=== PATIENT | female | born 1950 | race Caucasian/White ===

== ENCOUNTER 2024-11-03 15:29 | Inpatient (IN) | payer OTHER, SELFPAY ==
[2024-11-03] VITALS (7 sets, daily range): BP systolic 138–171; BP diastolic 67–89
[2024-11-03 08:50] LABS: % Basophils 0.2 % (0-2); % Eosinophils 1.9 % (0-6); % Immature Granulocytes 0.4 % (0-0.5); % Monocytes 0.4 % (1.7-9.3); % Neutrophils 92.1 % (42.2-75.2); Absolute Eosinophils 0.1 10^3/uL (0-0.7); Absolute Lymphocytes 0.3 10^3/uL (1.2-3.4); Absolute Neutrophils 4.8 10^3/uL (1.4-6.5); Hematocrit 33.8 % (37.0-47.0); Mean Corp Hgb Conc. 35.5 g/dL (33.0-37.0); Mean Corpuscular Hgb 32.4 pg (27.0-31.0); Mean Corpuscular Volume 91.4 fL (81.0-99.0); Mean Platelet Volume 9.7 fL (7.4-10.4); Nucleated Red Blood Cells % 0 %; Platelet Count 122 10^3/uL (130-400); Red Cell Dist. Width 13.4 % (11.5-14.5); White Blood Cell Count 5.2 10^3/uL (4.8-10.8)
[2024-11-03 08:59] LABS: ALT (SGPT) 33 U/L (0-35); AST (SGOT) 27 U/L (14-36); Albumin 3.8 g/dl (3.5-5.0); Alkaline Phosphatase 58 U/L (38-126); Blood Urea Nitrogen 13 mg/dl (7-17); Calcium 8.1 mg/dl (8.4-10.2); Carbon Dioxide 26 mmol/L (22-30); Chloride 91 mmol/L (98-107); Glucose 133 mg/dl (70-99); Potassium 3.6 mmol/L (3.5-5.1); Sodium 124 mmol/L (135-145); Total Bilirubin 1.3 mg/dl (0.2-1.3); Total Protein 5.9 g/dl (6.3-8.2); eGFR > 60.00
[2024-11-03] MEDS: NSS 1000 IV ×2 (09:50→18:26)
--- NOTE | 2024-11-03 10:14 | ED.GENMED ---
History of Present Illness
General
Chief Complaint: Abdominal Symptoms
Source: patient
Exam Limitations: none
Time Seen by Provider: 11/03/24 09:05
Nursing documentation reviewed up to this point in time: agreed with
History of Present Illness
History of Present Illness:
74-year-old female with past medical history of metastatic lung cancer (mets to the brain, bone, liver) who presents to the emergency department for evaluation of nausea and vomiting. Patient recently started chemotherapy for metastatic lung
cancer�had treatment Tuesday and Tuesday of this week. She follows with oncology through [facility]. She says that on she started to develop nausea and has had severe nausea and vomiting since. She has also had some loose stools. She
has had some very mild abdominal discomfort. She denies any fever or chills. She denies any chest pain, shortness of breath or any other complaints. She was prescribed both Zofran and Compazine for her nausea but despite taking these medications
symptoms have been severe and she has not been able to keep any food or liquid down which prompted her to come to the ER.
Past History
Past History
ED Past Medical History: Other (Mitral valve prolapse, syncope)
ED Past Surgical History: Orthopedic
Social History
Tobacco: Non-smoker
Personal:
Review of Systems
Review of Systems
All Other Systems: ROS reviewed and negative except as documented in HPI and ROS
Constitutional: Reports fatigue; Denies fever
Respiratory: Denies trouble breathing
Cardiac: Denies chest pain
ABD/GI: Reports abdominal pain, nausea, vomiting and diarrhea
: Denies flank pain
Musculoskeletal: Denies neck pain or back pain
Neurological: Denies dizzy or headache
Phy Exam
Physical Exam
Physical Exam:
General: Awake, alert, holding emesis bag
Head: Normocephalic, atraumatic
Eyes: Conjunctiva normal, sclera anicteric
Throat: Airway intact, slightly dry mucous membrane
Neck: Trachea midline, supple without meningismus
Lungs: Clear to auscultation bilaterally, no wheezing, rales, rhonchi
Heart: Regular rate and rhythm, no murmurs, gallops, or rubs
Abd: Soft, non distended, mild diffuse tenderness with no peritoneal signs
Neuro: Cranial nerves intact, motor and sensory intact in all extremities
Skin: no rash
Extremities: Warm and well-perfused
Scores
Heart Failure Risk
Heart Failure Risk Score: Not Applicable
Heart Score for Chest Pain Patients
STEMI patient?: Not applicable
Withdrawal Assessment of Alcohol
Withdrawal Assessment Completed?: Not applicable
Course
Orders/Labs/Results
Orders:
Orders
11/03/24 08:34
Complete Blood Count/With Diff Urgent
Comprehensive Metabolic Panel Urgent
Lipase Urgent
Comment: ADD ON
11/03/24 09:46
Add On- LAB Urgent
Tests Added?: lipase
CT Abd/pelvis W Iv Cont Urgent
Comment:
Reason For Exam: abd tenderness, N/V; h/o metastatic lung ca
11/03/24 09:47
0.9% Sodium Chloride 1000 ml [Nss] 1,000 ml IV BOLUS
Ondansetron Injectable [Zofran] 4 mg IV NOW STA
11/03/24 10:16
CT Head W/o Iv Contrast Urgent
Comment:
Reason For Exam: intractable nausea and vomiting, h/o brain met
11/03/24 10:17
Electrocardiogram (*1) Urgent
Reason for Study: QTc Monitoring
EKG- Treatment ONCE
11/03/24 10:55
Troponin I Urgent
11/03/24 11:57
Promethazine [Phenergan] 25 mg RECTAL NOW STA
Abnormal Lab Results
11/03/24
08:34
RBC 3.70 L 10^6/uL
(4.20-5.40)
Hct 33.8 L %
(37.0-47.0)
MCH 32.4 H pg
(27.0-31.0)
Plt Count 122 L 10^3/uL
(130-400)
Absolute Lymphs (auto) 0.3 L 10^3/uL
(1.2-3.4)
Absolute Monos (auto) 0.0 L 10^3/uL
(0.1-0.6)
Neutrophils % 92.1 H %
(42.2-75.2)
Lymphocytes % 5.0 L %
(20.5-51.1)
Monocytes % 0.4 L %
(1.7-9.3)
Sodium 124 L mmol/L
(135-145)
Chloride 91 L mmol/L
(98-107)
Creatinine 0.4 L mg/dL
(0.6-1.0)
Glucose 133 H mg/dl
(70-99)
Calcium 8.1 L mg/dl
(8.4-10.2)
Total Protein 5.9 L g/dl
(6.3-8.2)
11/03/24 08:34
11/03/24 08:34
Vital Signs
Initial and Last Documented VS:
Initial Vital Signs
Temp Pulse Resp BP Pulse Ox
36.7 C 88 20 138/73 100
11/03/24 07:54 11/03/24 07:54 11/03/24 07:54 11/03/24 07:54 11/03/24 07:54
Last Documented Vital Signs
Temp Pulse Resp BP Pulse Ox
36.7 C 88 16 138/73 100
11/03/24 07:54 11/03/24 07:54 11/03/24 08:00 11/03/24 07:54 11/03/24 07:54
MDM/Problems Addressed
Differential Diagnosis Includes:
Cholelithiasis, cholecystitis, bowel obstruction, pancreatitis, gastritis, enteritis, cancer/chemotherapy related symptoms, bowel obstruction, brain bleed/edema related to brain metastasis
MDM/Problems Addressed:
74-year-old female with history of metastatic lung cancer recently initiated chemotherapy presents for evaluation of severe nausea and vomiting associated with some mild abdominal discomfort as well as occasional loose stools. She has been
prescribed both Zofran and Compazine but these have not helped with her nausea and she says she is not able to keep any food or liquid down over the past few days. Vital signs and exam as above. Will plan to place large-bore IV send labs including
a CBC and a CMP, lipase. Check EKG and troponin. Check CT abdomen pelvis. Also check CT head to rule out brain bleed/edema related to metastasis. Will treat symptomatically and provide fluids. Reassess after the above.
Labs reviewed: CBC unremarkable, CMP does show hyponatremia likely hypovolemic. CT head negative for any acute pathology. CT abdomen pelvis shows colitis and duodenitis which accounts for her symptoms, suspect that this is related to chemotherapy.
Patient still feeling very weak and nauseated. Very weak and nauseated. Will admit for supportive care given continued nausea and vomiting with failure of multiple outpatient oral antiemetics and parenteral antiemetic here.
Chronic conditions affecting care:
Metastatic lung cancer
*Radiology
Radiology exam reviewed: radiology read reviewed
*Pulse Oximetry
Patient hypoxic: no
*Critical Care Note
Total Time (30-74mins, 75-104mins- exclusive of procedures): Not Applicable
Data Reviewed
Source: patient, records and spouse
Patient Management
Discussion with other providers: Hospitalist (Discussed with hospitalist)
Escalation/DeEscalation of care consider admission/obs:
Admission indicated
ED Attending Note
-
Portions of this chart may have been created with voice recognition software.� Occasional wrong word or��sound alike� substitutions may have occurred due to the inherent limitations of voice recognition software.
Discharge Plan
Departure
Patient Disposition: Admit
Date of Disposition: 11/03/24
Time of Disposition: 14:03
Admit to doctor: Micaela
Presentation/result/management discussed w/ accepting MD/DO: Hospitalist
Discharge Problem:
Colitis, Nausea & vomiting
Prescriptions:
No Action
ondansetron [Zofran ODT] 8 MG tablet,disintegrating
8 mg PO TID PRN (Reason: nausea/vomiting) Qty: 15 0RF
meclizine 25 MG tablet
25 mg PO Q8HPRN PRN (Reason: nausea or vertigo) Qty: 0 0RF
Referrals:
Ovidio Osorio DO [Family Provider] -
Interventions
Interventions:
*Risk Screen - Suicide Last Done: 11/03/24 07:58
*General Assessment Last Done: 11/03/24 08:23
*Neglect/Abuse Screening Last Done: 11/03/24 07:58
*ED- Fall Risk Assessment Last Done: 11/03/24 08:23
*ED COVID-19 Vaccine History Last Done: 11/03/24 08:23
OM-Jduktw-Midzhcppir Assessment Last Done: 11/03/24 08:24
Discharge Date and Time
Print Language: TELUGU
[2024-11-03 10:18] LABS: Lipase 110 U/L (23-300)
[2024-11-03] MEDS: ZOFRAN 4 MG IV ×2 (10:30→20:32)
[2024-11-03 11:42] LABS: Troponin I < 0.012 ng/ml
[2024-11-03] MEDS: PHENERGAN RECTAL (12:20)
[2024-11-03] MEDS: PHENERGAN 25 MG RECTAL (14:08)
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
[2024-11-03 18:25] LABS: Sodium 127 mmol/L (135-145)
[2024-11-03] MEDS: HEPARIN 5000 UNITS SC (19:41)
[2024-11-03] MEDS: PHENERGAN 12.5 MG PO (22:14)
[2024-11-04] MEDS: ZOFRAN 4 MG IV (02:22)
[2024-11-04] MEDS: NSS 1000 IV ×2 (03:39→15:33)
[2024-11-04 04:23] LABS: % Immature Granulocytes 3.7 % (0-0.5); % Lymphocytes 12.7 % (20.5-51.1); % Neutrophils 79.6 % (42.2-75.2); Absolute Eosinophils 0.1 10^3/uL (0-0.7); Absolute Immature Granulocytes 0.1 10^3/uL (0-0.05); Absolute Lymphocytes 0.3 10^3/uL (1.2-3.4); Absolute Monocytes 0.1 10^3/uL (0.1-0.6); Absolute Neutrophils 1.9 10^3/uL (1.4-6.5); Hematocrit 34.4 % (37.0-47.0); Hemoglobin 12.1 g/dL (12.0-16.0); Mean Corp Hgb Conc. 35.2 g/dL (33.0-37.0); Mean Corpuscular Hgb 32.9 pg (27.0-31.0); Mean Corpuscular Volume 93.5 fL (81.0-99.0); Mean Platelet Volume 9.6 fL (7.4-10.4); Nucleated Red Blood Cells % 0 %; Platelet Count 104 10^3/uL (130-400); Red Blood Cell Count 3.68 10^6/uL (4.20-5.40); Red Cell Dist. Width 13.6 % (11.5-14.5); White Blood Cell Count 2.4 10^3/uL (4.8-10.8)
[2024-11-04 04:31] LABS: ALT (SGPT) 29 U/L (0-35); AST (SGOT) 25 U/L (14-36); Albumin 3.9 g/dl (3.5-5.0); Alkaline Phosphatase 59 U/L (38-126); Blood Urea Nitrogen 10 mg/dl (7-17); Calcium 7.6 mg/dl (8.4-10.2); Carbon Dioxide 26 mmol/L (22-30); Chloride 92 mmol/L (98-107); Glucose 131 mg/dl (70-99); Potassium 3.4 mmol/L (3.5-5.1); Sodium 125 mmol/L (135-145); Total Bilirubin 1.2 mg/dl (0.2-1.3); eGFR > 60.00
[2024-11-04] MEDS: KCL 270 MEQ IV (05:46)
[2024-11-04 07:00] VITALS: BP 155/91
[2024-11-04 07:28] VITALS: BP 155/91
[2024-11-04] MEDS: HEPARIN 5000 UNITS SC ×2 (09:37→21:29)
[2024-11-04] MEDS: IMODIUM 2 MG PO ×2 (09:40→21:44)
--- NOTE | 2024-11-04 10:54 | CON.GI ---
Consultation
-
Date/Time Consultation Performed: 11/04/24
Performing Provider: Vernon Dupont MD
Reason for Consultation: N/V/D
Medical History
Chief Complaint / HPI
Chief Complaint: N/V/D
History of Present Illness:
The patient is a 74-year-old female with past medical history as noted who presents with nausea vomiting and diarrhea. She has a several year history of metastatic lung cancer, though with new metastasis was recently started on new regimen
including carboplatin and immunotherapy. Within 2 days she started having profuse vomiting, and diarrhea which was nonbloody. She denies any specific abdominal pain, fever chills, sick contacts. She usually does not have any specific GI symptoms
and usually does pretty well. Since being in the emergency room her symptoms are much improved after IV fluids and antiemetics.
Past Medical History
Past Medical History: Other (Metastatic non-small cell lung cancer to brain, bone and liver, anxiety, mitral valve prolapse, leg fracture)
Past Surgical History: Other (Leg surgery)
Social History
Tobacco: Non-Smoker
Alcohol: Occasional
Family History
Family History: Reviewed & Not Pertinent
Allergies / Home Medications
Allergy/AdvReac Type Severity Reaction Status Date / Time
No Known Allergies Allergy Verified 11/03/24 08:01
�Medication �Instructions �Recorded
alprazolam 0.25 mg tablet 0.25 mg PO HSPRN PRN ANXIETY 11/03/24
dexamethasone 4 mg tablet See Rx Instructions .Route .COMPLEX 11/03/24
folic acid 1 mg tablet 1 mg PO DAILY 11/03/24
loperamide 2 mg capsule 2 mg PO DAILYPRN PRN diarrhea 11/03/24
ondansetron HCl 8 mg tablet 8 mg PO Q8HPRN PRN nausea/vomiting 11/03/24
prochlorperazine maleate 10 mg 10 mg PO Q6HPRN PRN nausea/vomiting 11/03/24
tablet
Review of Systems
-
All other systems: A 12 pt ROS was Negative except as stated above in HPI
Vital Signs
Temp Pulse Resp BP Pulse Ox
98.4 F 76 19 165/78 97
11/03/24 23:54 11/03/24 21:00 11/03/24 20:40 11/03/24 21:00 11/03/24 20:44
Physical Exam
Exam
General: NAD
HEENT: MMM, anicteric, no lymphadenopathy
Heart: Regular, no murmurs
Lungs: CTA bilaterally
Abdomen: normal bowel sounds, soft, no tenderness, no rebound or guarding, no masses, bruits or ascites
Extremeties: no edema
Skin: no rashes
Results
WBC 2.4 10^3/uL (4.8-10.8) L* 11/04/24 04:01
Hgb 12.1 g/dL (12.0-16.0) 11/04/24 04:01
Hct 34.4 % (37.0-47.0) L 11/04/24 04:01
MCV 93.5 fL (81.0-99.0) 11/04/24 04:01
Plt Count 104 10^3/uL (130-400) L 11/04/24 04:01
Absolute Neuts (auto) 1.9 10^3/uL (1.4-6.5) 11/04/24 04:01
Sodium 125 mmol/L (135-145) L 11/04/24 04:01
Sodium Cancelled 11/04/24 04:01
Potassium 3.4 mmol/L (3.5-5.1) L 11/04/24 04:01
Chloride 92 mmol/L (98-107) L 11/04/24 04:01
Carbon Dioxide 26 mmol/L (22-30) 11/04/24 04:01
BUN 10 mg/dl (7-17) 11/04/24 04:01
Creatinine 0.4 mg/dL (0.6-1.0) L 11/04/24 04:01
Calcium 7.6 mg/dl (8.4-10.2) L 11/04/24 04:01
Total Bilirubin 1.2 mg/dl (0.2-1.3) 11/04/24 04:01
AST 25 U/L (14-36) 11/04/24 04:01
ALT 29 U/L (0-35) 11/04/24 04:01
Alkaline Phosphatase 59 U/L (38-126) 11/04/24 04:01
Lipase 110 U/L (23-300) 11/03/24 08:34
Diagnostic Image Results:
CT:
IMPRESSION:
1. Acute uncomplicated colitis at the hepatic flexure, likely of infectious/inflammatory etiology. Adjacent reactive duodenitis. Less likely differential includes primary duodenitis with reactive colitis of the hepatic flexure.
2. Scattered small hypoattenuating hepatic lesions suspicious for metastases.
3. Right lower lobe pulmonary nodule suspicious for neoplasm.
4. Scattered osteoblastic metastases. Probable chronic mild T11 pathologic compression fracture.
Prior GI Procedures:
EGD:
Colonoscopy:
Assessment / Plan
-
1. Nausea/vomiting/diarrhea: Likely secondary to chemotherapy along with dehydration and electrolyte abnormalities given her hyponatremia, hypokalemia etc. She is feeling much better after IV fluid resuscitation and antiemetics with no further
nausea, and diarrhea is improving. C. difficile is negative, other stool studies pending. Immune mediated enterocolitis seems very unlikely given its timing after her first dose of immunotherapy, without any bloody diarrhea and is already much
improved with IV fluids. At this point would continue antiemetics, IV fluids and supportive care with continued replacement of her electrolytes. Continue clear liquids for now though advance as tolerated. Will hold on any further GI workup unless
symptoms change.
We will sign off for now, please call back with any further questions.
-
-
Thank you for consultation and allowing me to participate in the patient's care. Please call the fiction and nonfiction writer prose GI physician during the after hours with any questions or concerns.
--- NOTE | 2024-11-04 10:56 | PTOTSP ---
Received order for PT from the ED and reviewed chart. Went to ED to s/w RN who requests holding PT at this time. Will follow up tomorrow.
--- NOTE | 2024-11-04 11:23 | W.CON.NEPH ---
Consultation
-
Date/Time Consultation Requested: 11/04/2024 9 AM
Date/Time Consultation Performed: 11/05/2019 5:11 AM
Requesting Provider: Dr. Beckham
Performing Provider: Dr. Alexandra
Reason for Consultation: Hyponatremia
Medical History
-
Chief Complaint: Hyponatremia
History of Present Illness:
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 She has been on treatment since 2021. She is currently on her third chemotherapy regimen. This most recent one includes carboplatin, paclitaxel and
Amivantamab-vmjw immunotherapy (over 2 days), she took dexamethasone on 10/29, 10/30, 10/31 and 11/01. On evening she began with nausea and retching. There is not much vomiting as she had not eaten much. Her oral intake has essentially been 0
with the exception of perhaps 8 ounces of fluid per day mostly water. She also began having diarrhea over the weekend voluminous and frequent. She began to have some orthostasis though no falls. Because of these worsening symptoms she came to the
emergency room. She was noted to be hyponatremic with hypokalemia and hypocalcemia. She was not hypotensive however but rather hypertensive. She states that her blood pressure is typically high normal. She does have some mild abdominal
discomfort. She reports no issues with urine output.
Past Medical History
Metastatic adenocarcinoma of the lung
Hypertension
Social History
Tobacco: Non-Smoker
Alcohol: None
Family History
There is an uncle with lung cancer
Family History: Not Pertinent
Allergies / Home Medications
Allergy/AdvReac Type Severity Reaction Status Date / Time
No Known Allergies Allergy Verified 11/03/24 08:01
�Medication �Instructions �Recorded �Confirmed �Type
alprazolam 0.25 mg tablet 0.25 mg PO HSPRN PRN ANXIETY 11/03/24 11/03/24 History
dexamethasone 4 mg tablet See Rx Instructions .Route .COMPLEX 11/03/24 11/03/24 History
folic acid 1 mg tablet 1 mg PO DAILY 11/03/24 11/03/24 History
loperamide 2 mg capsule 2 mg PO DAILYPRN PRN diarrhea 11/03/24 11/03/24 History
ondansetron HCl 8 mg tablet 8 mg PO Q8HPRN PRN nausea/vomiting 11/03/24 11/03/24 History
prochlorperazine maleate 10 mg 10 mg PO Q6HPRN PRN nausea/vomiting 11/03/24 11/03/24 History
tablet
Review of Systems
-
Nausea vomiting diarrhea
All other systems: Negative unless noted
Physical Exam
Vital Signs
Vital Signs
Temp Pulse Resp BP Pulse Ox
98.4 F 76 19 165/78 97
11/03/24 23:54 11/03/24 21:00 11/03/24 20:40 11/03/24 21:00 11/03/24 20:44
Lab Results
WBC 2.4 10^3/uL (4.8-10.8) L* 11/04/24 04:01
RBC 3.68 10^6/uL (4.20-5.40) L 11/04/24 04:01
Hgb 12.1 g/dL (12.0-16.0) 11/04/24 04:01
Hct 34.4 % (37.0-47.0) L 11/04/24 04:01
Plt Count 104 10^3/uL (130-400) L 11/04/24 04:01
Sodium 125 mmol/L (135-145) L 11/04/24 04:01
Sodium Cancelled 11/04/24 04:01
Potassium 3.4 mmol/L (3.5-5.1) L 11/04/24 04:01
Chloride 92 mmol/L (98-107) L 11/04/24 04:01
Carbon Dioxide 26 mmol/L (22-30) 11/04/24 04:01
BUN 10 mg/dl (7-17) 11/04/24 04:01
Creatinine 0.4 mg/dL (0.6-1.0) L 11/04/24 04:01
eGFR > 60.00 11/04/24 04:01
Glucose 131 mg/dl (70-99) H 11/04/24 04:01
Calcium 7.6 mg/dl (8.4-10.2) L 11/04/24 04:01
Albumin 3.9 g/dl (3.5-5.0) 11/04/24 04:01
Laboratory Tests
04/09/17
12:25
Sodium [address] abdomen pelvis 11/03/2024 with IV contrast
IMPRESSION:
1. Acute uncomplicated colitis at the hepatic flexure, likely of infectious/inflammatory etiology. Adjacent reactive duodenitis. Less likely differential includes primary duodenitis with reactive colitis of the hepatic flexure.
2. Scattered small hypoattenuating hepatic lesions suspicious for metastases.
3. Right lower lobe pulmonary nodule suspicious for neoplasm.
4. Scattered osteoblastic metastases. Probable chronic mild T11 pathologic compression fracture.
Physical Exam
Patient is awake alert oriented and in no distress. Mood and affect were pleasant, insight and judgment were good. Pupils are equal round and reactive to light, extraocular movements are intact, sclera were anicteric. Hearing was normal, ears and
nose are intact. Oropharynx was clear. Neck was supple with trachea midline and no thyromegaly. Heart was regular rate and rhythm without rubs. Lower extremities without edema. Lungs were clear to auscultation bilaterally and with normal
excursion. Abdomen was soft, slightly tender, with normal active bowel sounds, and no hepatosplenomegaly. Skin was without rash and with normal turgor.
Data Reviewed
-
CT Scan: Report Reviewed by me
Medical Tests (Nuc Med, Echo etc): Image Personally Visualized and interpreted (EKG 11/03/2024 by my reading normal sinus rhythm incomplete right bundle branch block)
Labs: Labs Reviewed by me
Old Records: Reviewed
Assessment/Plan
-
Assessment
metastatic lung cancer
Hyponatremia
Hypokalemia
Hypocalcemia
Hypertension
Nausea vomiting diarrhea
Plan
IV fluids isotonic
Await urine studies
Replete potassium and calcium
Serial BMP
Check magnesium and phosphorus
--- NOTE | 2024-11-04 12:36 | CM ---
Met with patient admitted from home. She lives with , E[place] in [facility] [address] [facility], 5 steps to enter. UP full flight to bedrooms and full bath. There is half bath on order entry representative. She does not use any DME. NO history of SNF OR VNA.
PCP: Ovidio Osorio
RX: [facility]
PLAN: home with outpatient oncology follow up.
--- NOTE | 2024-11-04 13:03 | W.PN.HOSP.TC ---
Today's Communication/Plan
-
Monitor vital signs see plan
Nephrology evaluation
cw clears
Check urine and serum studies
Monitor BMP
Assessment / Plan
Assessment / Plan
General: Conversant; No Pain, Fever or Chills
HEENT: NormoCephalic, Anicteric
Respiratory: Clear; No Wheezes, Rales or Rhonchi
Cardiac: S1/S2 and Regular Rhythm
GI: Soft, Non Tender, Non Distended, Normal Bowel Sounds
Musculoskeletal: No Edema
Neuro: AO x 3, No Motor Deficits, Nonfocal/grossly intact
Psych: Calm
Acute colitis noninfectious secondary to nausea /vomiting/diarrhea from chemotherapy/immunotherapy
#Acute Duodenitis
Just completed 2 days of chemo/immunotherapy 10/30, 10/31
Continue with normal saline
Nephrology consulted, may need hypertonic saline if hyponatremia does not improve
Antiemetic
- Continue loperamide
cdiff neg
GI consulted
Clear liquid diet for now
CT abdomen pelvis with IV contrast:
1. Acute uncomplicated colitis at the hepatic flexure, likely of infectious/inflammatory etiology. Adjacent reactive duodenitis. Less likely differential includes primary duodenitis with reactive colitis of the hepatic flexure.
2. Scattered small hypoattenuating hepatic lesions suspicious for metastases.
3. Right lower lobe pulmonary nodule suspicious for neoplasm.
4. Scattered osteoblastic metastases. Probable chronic mild T11 pathologic compression fracture.
CT head: No acute intracranial abnormality
#Hypovolemic hyponatremia
NA 124 history intractable nausea vomiting
Sodium still low despite normal saline. Check urine and serum studies. Consult nephrology.
Hypokalemia
replete
#Acute hypocalcemia
Replete
follow calcium
Check magnesium
EKG: Sinus rhythm with PACs, 73 bpm, QTc 456 MS incomplete [id number]
#NON SMALL CELL. lung CA metastases to liver March 2024 biopsied
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
She underwent her FIRST chemotherapy on 10/30 and 10/31 Carboplatin, Paclitaxel and Amivantamab-vmjw Immunotherapy(over 2 days) she took dexamethasone on 10/29, 10/30, 10/31 and 11/01.
�On CT multiple hepatic lesions, right lower lobe pulmonary nodule, osteoblastic metastases mild T11 compression fracture
-Follows with [facility]
- Plan is for chemo once a week, immunotherapy second week, immunotherapy third week for future
Leukopenia
Monitor, likely secondary to recent chemo
#Acute thrombocytopenia secondary to chemotherapy
follow CBC
#Mitral valve prolapse
#Hx of syncope
Will monitor orthostatic vitals
DVT prophylaxis
Subcu heparin
Full code
I spent a total of 52 minutes with the patient or on the floor. More than 50% of this time involved counseling and coordination of care.
Anticipated Discharge: 24 - 48 hours
Subjective/Interval History
-
Date of Service: November 04, 2024
Feeling little better
Objective Data
-
Labs:
Laboratory Results
11/04/24 11/04/24 11/04/24
04:01 04:01 15:00
WBC 2.4 L*
Hgb 12.1
Hct 34.4 L
Plt Count 104 L
Sodium Cancelled 125 L Pending
Potassium 3.4 L Pending
Chloride 92 L Pending
Carbon Dioxide 26 Pending
BUN 10 Pending
Creatinine 0.4 L Pending
Glucose 131 H Pending
Calcium 7.6 L Pending
Total Bilirubin 1.2
AST 25
ALT 29
Alkaline Phosphatase 59
Vital Signs:
Vital Signs
Temp Pulse Resp BP Pulse Ox
98.3 F 94 22 155/91 97
11/04/24 07:00 11/04/24 07:00 11/04/24 07:00 11/04/24 07:00 11/04/24 07:00
I&O
11/03/24 11/04/24 11/05/24
06:59 06:59 06:59
Intake Total 1460 / 1460 550 / 550
Balance 1460 / 1460 550 / 550
[2024-11-04 13:09] VITALS: BP 148/75
[2024-11-04 13:11] VITALS: BMI 21.4
[2024-11-04] MEDS: CALCIUM GLUCONATE 100 IV (13:43)
[2024-11-04 13:45] LABS: Osmolality Urine 568 mOsm/kg (300-900); Urine Sodium 179 mmol/L (30-90)
[2024-11-04 15:30] VITALS: BP 156/75
[2024-11-04 16:19] LABS: Blood Urea Nitrogen 8 mg/dl (7-17); Calcium 7.5 mg/dl (8.4-10.2); Carbon Dioxide 23 mmol/L (22-30); Chloride 94 mmol/L (98-107); Estimated Creatinine Clearance 63 ml/min; Glucose 114 mg/dl (70-99); Magnesium 1.9 mg/dl (1.6-2.3); Phosphorus 1.9 mg/dl (2.5-4.5); Potassium 3.5 mmol/L (3.5-5.1); Sodium 125 mmol/L (135-145); eGFR > 60.00
[2024-11-04] MEDS: PHENERGAN 12.5 MG PO (16:49)
--- NOTE | 2024-11-04 16:55 | PTCARENOTE ---
Pt arrived to 1 Acute from ED. Calcium Gluconate 1 gram IV administered. NSS @ 100ml/hr infusing. Ordered labs drawn and sent. Pt with episode of emesis after clear liquid lunch. PRN Phenergan PO administered.
[2024-11-04 17:47] LABS: Osmolality Serum 256 mOsm/kg (275-300)
[2024-11-04 19:02] VITALS: BP 123/82
[2024-11-04] MEDS: POTASSIUM PHOSPHATE 259.0909 MEQ IV (21:26)
[2024-11-04] MEDS: ALPRAZOLAM ODT 0.25 MG PO (23:09)
[2024-11-04 23:10] VITALS: BP 178/89
[2024-11-05 03:10] VITALS: BP 153/75
[2024-11-05] MEDS: PHENERGAN 12.5 MG PO ×3 (03:15→19:39)
[2024-11-05] MEDS: NSS 1000 IV (07:18)
[2024-11-05 07:40] VITALS: BP 138/74
[2024-11-05 08:43] LABS: % Basophils 0.5 % (0-2); % Eosinophils 2.7 % (0-6); % Immature Granulocytes 2.2 % (0-0.5); % Lymphocytes 11.9 % (20.5-51.1); % Monocytes 7.6 % (1.7-9.3); % Neutrophils 75.1 % (42.2-75.2); Absolute Eosinophils 0.1 10^3/uL (0-0.7); Absolute Lymphocytes 0.2 10^3/uL (1.2-3.4); Absolute Monocytes 0.1 10^3/uL (0.1-0.6); Absolute Neutrophils 1.4 10^3/uL (1.4-6.5); Hemoglobin 11.5 g/dL (12.0-16.0); Mean Corp Hgb Conc. 35.9 g/dL (33.0-37.0); Mean Corpuscular Volume 91.7 fL (81.0-99.0); Mean Platelet Volume 9.1 fL (7.4-10.4); Nucleated Red Blood Cells % 0 %; Platelet Count 74 10^3/uL (130-400); Red Blood Cell Count 3.49 10^6/uL (4.20-5.40); Red Cell Dist. Width 13.2 % (11.5-14.5); White Blood Cell Count 1.9 10^3/uL (4.8-10.8)
[2024-11-05] MEDS: HEPARIN 5000 UNITS SC ×2 (09:02→19:39)
[2024-11-05 09:33] LABS: ALT (SGPT) 22 U/L (0-35); AST (SGOT) 22 U/L (14-36); Albumin 3.1 g/dl (3.5-5.0); Alkaline Phosphatase 58 U/L (38-126); Blood Urea Nitrogen 9 mg/dl (7-17); Calcium 7.2 mg/dl (8.4-10.2); Carbon Dioxide 26 mmol/L (22-30); Chloride 92 mmol/L (98-107); Estimated Creatinine Clearance 63 ml/min; Glucose 125 mg/dl (70-99); Potassium 3.8 mmol/L (3.5-5.1); Sodium 123 mmol/L (135-145); Total Protein 5.2 g/dl (6.3-8.2); eGFR > 60.00
--- NOTE | 2024-11-05 10:17 | W.PN.NEPH.PH ---
Today's Communication / Plan
-
Will provide hypertonic saline
Follow-up lytes later this afternoon add FR
Assessment/Plan
-
Assessment
metastatic lung cancer
Hyponatremia
Hypokalemia
Hypocalcemia
Hypertension
Nausea vomiting diarrhea/colitis
Plan
DC isotonic saline as sodium dropping from 125-123
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
Replete potassium and calcium pRN
Serial BMP
Checked magnesium and phosphorus
Had fluid restriction but only 48oz
-
-
Date of Service: November 05, 2024
CC / HPI / ROS
-
Chief Complaint:
Hyponatremia
History of Present Illness:
serum sodium down to 123 with NSS
hemodynamicaly stable
Thrombocytopenia and leukopenia persist
Review of Systems:
Urine output not recorded
No fevers
Noted nausea and diarrhea overnight
Labs
-
Labs:
WBC 1.9 10^3/uL (4.8-10.8) L* 11/05/24 07:51
RBC 3.49 10^6/uL (4.20-5.40) L 11/05/24 07:51
Hgb 11.5 g/dL (12.0-16.0) L 11/05/24 07:51
Hct 32.0 % (37.0-47.0) L 11/05/24 07:51
Plt Count 74 10^3/uL (130-400) L D 11/05/24 07:51
Sodium 123 mmol/L (135-145) L 11/05/24 07:51
Potassium 3.8 mmol/L (3.5-5.1) 11/05/24 07:51
Chloride 92 mmol/L (98-107) L 11/05/24 07:51
Carbon Dioxide 26 mmol/L (22-30) 11/05/24 07:51
BUN 9 mg/dl (7-17) 11/05/24 07:51
Creatinine 0.4 mg/dL (0.6-1.0) L 11/05/24 07:51
eGFR > 60.00 11/05/24 07:51
Glucose 125 mg/dl (70-99) H 11/05/24 07:51
Calcium 7.2 mg/dl (8.4-10.2) L 11/05/24 07:51
Phosphorus 1.9 mg/dl (2.5-4.5) L 11/04/24 15:45
Albumin 3.1 g/dl (3.5-5.0) L 11/05/24 07:51
Physical Exam
-
Vital Signs:
Vital Signs
Temp Pulse Resp BP Pulse Ox
98.9 F 96 16 138/74 98
11/05/24 07:40 11/05/24 07:40 11/05/24 07:40 11/05/24 07:40 11/05/24 07:40
Cardiovascular:: Regular rate and rhythm
Respiratory:: Bilateral: CTA
Lung Excursion:: Normal
Abdomen:: Tender
Bowel Sounds:: Decreased
Extremity Edema:: None: Bilateral:
[2024-11-05] MEDS: NSS IV (10:36)
[2024-11-05] MEDS: SODIUM CHLORIDE 3% 250 IV (10:57)
--- NOTE | 2024-11-05 11:36 | PTCARENOTE ---
3% briefly infusing. pt c/o pain to site. no prior pain to iv site when flushed before start of infusion. 3% stopped. iv removed. new site restarted (20g L ac), however pt c/o pain to that iv site. +blood return. iv team made aware.
--- NOTE | 2024-11-05 12:25 | CM ---
Patient seen bedside with spouse.
Patient aware of CM availability should needs arise.
Spouse will transport.
Plan: home no needs anticipated. w.
--- NOTE | 2024-11-05 13:16 | W.PN.HOSP.TC ---
Today's Communication/Plan
-
Continue symptomatic treatment with antiemetics. Continued IV fluids. Keep on clear liquid diet.
Start on IV Protonix.
Hypotonic solution per nephrology. Follow sodium.
Assessment / Plan
Assessment / Plan
Acute colitis possibly noninfectious
-symptomatically troubled with nausea /vomiting/diarrhea which is suspected from chemotherapy/immunotherapy
#Acute Duodenitis
Just completed 2 days of chemo/immunotherapy 10/30, 10/31
Continue with normal saline with poor oral intake
CW symptomatic tx
cdiff neg
GI consulted-appt input- signed off
Clear liquid diet for now
Add Protonix with possible duodenitis
If continued intractable GI symptoms will call back GI.
CT abdomen pelvis with IV contrast:
1. Acute uncomplicated colitis at the hepatic flexure, likely of infectious/inflammatory etiology. Adjacent reactive duodenitis. Less likely differential includes primary duodenitis with reactive colitis of the hepatic flexure.
2. Scattered small hypoattenuating hepatic lesions suspicious for metastases.
3. Right lower lobe pulmonary nodule suspicious for neoplasm.
4. Scattered osteoblastic metastases. Probable chronic mild T11 pathologic compression fracture.
CT head: No acute intracranial abnormality
#Hypovolemic hyponatremia
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
Drop in sodium noted-started on hypertonic solution by nephrology.
Continue to monitor sodium closely.
#NON SMALL CELL. lung CA metastases to liver March 2024 biopsied
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
She underwent her FIRST chemotherapy on 10/30 and 10/31 Carboplatin, Paclitaxel and Amivantamab-vmjw Immunotherapy(over 2 days) she took dexamethasone on 10/29, 6, 10/31 and 11/01.
�On CT multiple hepatic lesions, right lower lobe pulmonary nodule, osteoblastic metastases mild T11 compression fracture
-Follows with [facility]
- Plan is for chemo once a week, immunotherapy second week, immunotherapy third week for future
Pancytopenia without neutropenia
Monitor, likely secondary to recent chemo
follow CBC
#Mitral valve prolapse
#Hx of syncope
Will monitor orthostatic vitals
DVT prophylaxis
Subcu heparin
Full code
Discussed with RN
Total time spent on today's encounter was 52 minutes which included time spent in counseling the patient/family regarding diagnosis and treatment plan as listed above, goals of care, and symptom management. Case was discussed with nursing staff,
specialists, and care coordinators/case management. All labs and imaging personally reviewed by me. Remainder the time spent in detailed review of previous records, lab data, imaging, and other medical provider documentation.
Anticipated Discharge: > 48 hours
Subjective/Interval History
-
Date of Service: November 05, 2024
Ongoing nausea. She threw up twice in front of me. No abdominal pain. 1 loose stool today but she had a very large loose stool yesterday. No fever or chills.
Denies any shortness of breath or chest pain.
Objective Data
-
Labs:
Laboratory Results
11/05/24 11/05/24
07:51 15:00
WBC 1.9 L*
Hgb 11.5 L
Hct 32.0 L
Plt Count 74 L D
Sodium 123 L Pending
Potassium 3.8 Pending
Chloride 92 L Pending
Carbon Dioxide 26 Pending
BUN 9
Creatinine 0.4 L
Glucose 125 H
Calcium 7.2 L
Total Bilirubin 1.0
AST 22
ALT 22
Alkaline Phosphatase 58
Vital Signs:
Vital Signs
Temp Pulse Resp BP Pulse Ox
98.9 F 96 16 138/74 98
11/05/24 07:40 11/05/24 07:40 11/05/24 07:40 11/05/24 07:40 11/05/24 07:40
I&O
11/04/24 11/05/24 11/06/24
06:59 06:59 06:59
Intake Total 1460 / 1460 790 / 790
Balance 1460 / 1460 790 / 790
Physical Exam
-
General: No Apparent Distress
Respiratory: Clear to Auscultation
Cardiac: Regular Rhythm and S1/S2
GI: Soft and Nontender
Neuro: AO x 3
Psych: Calm
Data Reviewed
-
Labs: Labs Reviewed by me
[2024-11-05] MEDS: NSS (PRESERVATIVE FREE) 10 ML IV (14:36)
[2024-11-05] MEDS: PROTONIX IV 40 MG IV (14:37)
[2024-11-05] MEDS: ZOFRAN 4 MG IV (15:21)
[2024-11-05 15:30] VITALS: BP 141/79
[2024-11-05 15:35] LABS: Carbon Dioxide 25 mmol/L (22-30); Chloride 96 mmol/L (98-107); Potassium 3.5 mmol/L (3.5-5.1); Sodium 121 mmol/L (135-145)
[2024-11-05] MEDS: ALPRAZOLAM ODT 0.25 MG PO (19:39)
[2024-11-05 23:02] VITALS: BP 126/59
[2024-11-06 07:46] LABS: Blood Urea Nitrogen 10 mg/dl (7-17); Calcium 7.3 mg/dl (8.4-10.2); Carbon Dioxide 29 mmol/L (22-30); Chloride 97 mmol/L (98-107); Estimated Creatinine Clearance 63 ml/min; Glucose 109 mg/dl (70-99); Potassium 3.6 mmol/L (3.5-5.1); Sodium 127 mmol/L (135-145); eGFR > 60.00
[2024-11-06 07:53] VITALS: BP 129/80
--- NOTE | 2024-11-06 07:56 | W.PN.NEPH.PH ---
Today's Communication / Plan
-
maintain FR
follow bmp
sodium up to 127 after hypertonic infusion
Assessment/Plan
-
Assessment
metastatic lung cancer
Hyponatremia
Hypokalemia
Hypocalcemia
Hypertension
Nausea vomiting diarrhea/colitis
Plan
s/p 3% saline given yesterday and sodium now up to 127
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
Replete potassium and calcium pRN
Serial BMP
follow up,magnesium, ionized calcium, and phosphorus
FR 48oz
-
-
Date of Service: November 06, 2024
CC / HPI / ROS
-
Chief Complaint:
Hyponatremia
History of Present Illness:
serum sodium up to 127
hemodynamically stable
Thrombocytopenia and leukopenia persist
Review of Systems:
Urine output not recorded
No fevers
nausea improved
Labs
-
Labs:
Sodium 127 mmol/L (135-145) L 11/06/24 06:38
Potassium 3.6 mmol/L (3.5-5.1) 11/06/24 06:38
Chloride 97 mmol/L (98-107) L 11/06/24 06:38
Carbon Dioxide 29 mmol/L (22-30) 11/06/24 06:38
BUN 10 mg/dl (7-17) 11/06/24 06:38
Creatinine 0.4 mg/dL (0.6-1.0) L 11/06/24 06:38
eGFR > 60.00 11/06/24 06:38
Glucose 109 mg/dl (70-99) H 11/06/24 06:38
Calcium 7.3 mg/dl (8.4-10.2) L 11/06/24 06:38
Phosphorus 1.9 mg/dl (2.5-4.5) L 11/04/24 15:45
Albumin 3.1 g/dl (3.5-5.0) L 11/05/24 07:51
Physical Exam
-
Vital Signs:
Vital Signs
Temp Pulse Resp BP Pulse Ox
98.2 F 84 20 129/80 100
11/06/24 07:53 11/06/24 07:53 11/06/24 07:53 11/06/24 07:53 11/06/24 07:53
Cardiovascular:: Regular rate and rhythm
Respiratory:: Bilateral: CTA
Lung Excursion:: Normal
Abdomen:: Tender
Bowel Sounds:: Decreased
Extremity Edema:: None: Bilateral:
[2024-11-06 08:18] LABS: Hematocrit 30.6 % (37.0-47.0); Hemoglobin 10.8 g/dL (12.0-16.0); Mean Corp Hgb Conc. 35.3 g/dL (33.0-37.0); Mean Corpuscular Hgb 32.5 pg (27.0-31.0); Mean Corpuscular Volume 92.2 fL (81.0-99.0); Mean Platelet Volume 10.1 fL (7.4-10.4); Platelet Count 63 10^3/uL (130-400); Red Blood Cell Count 3.32 10^6/uL (4.20-5.40); Red Cell Dist. Width 13.1 % (11.5-14.5); White Blood Cell Count 1.5 10^3/uL (4.8-10.8)
[2024-11-06] MEDS: HEPARIN 5000 UNITS SC ×2 (08:32→20:17)
[2024-11-06] MEDS: PROTONIX IV 40 MG IV (08:32)
[2024-11-06] MEDS: NSS (PRESERVATIVE FREE) 10 ML IV (08:32)
[2024-11-06 11:41] VITALS: BMI 21.4
[2024-11-06 12:01] LABS: % Basophils 0.7 % (0-2); % Immature Granulocytes 1.3 % (0-0.5); % Lymphocytes 21.2 % (20.5-51.1); % Monocytes 9.3 % (1.7-9.3); % Neutrophils 65.5 % (42.2-75.2); Absolute Lymphocytes 0.3 10^3/uL (1.2-3.4); Absolute Monocytes 0.1 10^3/uL (0.1-0.6); Nucleated Red Blood Cells % 0 %
[2024-11-06 12:12] VITALS: BP 143/75; PULSE 87; O2SAT 98
--- NOTE | 2024-11-06 13:33 | CM ---
retail banking manager reviewed patient's chart and met with patient and plan is to home when stable, no needs.
Plan; Home no needs.
--- NOTE | 2024-11-06 15:04 | W.PN.HOSP.TC ---
Today's Communication/Plan
-
Advance to solid diet
Follow Na
DC planning
Assessment / Plan
Assessment / Plan
Acute colitis possibly noninfectious
-symptomatically troubled with nausea /vomiting/diarrhea which is suspected from chemotherapy/immunotherapy
#Acute Duodenitis
Just completed 2 days of chemo/immunotherapy 10/30, 10/31
Improved symptoms - advance diet to solid diet
cdiff neg
GI consulted-appt input- signed off
CW Protonix with possible duodenitis
If continued intractable GI symptoms will call back GI.
CT abdomen pelvis with IV contrast:
1. Acute uncomplicated colitis at the hepatic flexure, likely of infectious/inflammatory etiology. Adjacent reactive duodenitis. Less likely differential includes primary duodenitis with reactive colitis of the hepatic flexure.
2. Scattered small hypoattenuating hepatic lesions suspicious for metastases.
3. Right lower lobe pulmonary nodule suspicious for neoplasm.
4. Scattered osteoblastic metastases. Probable chronic mild T11 pathologic compression fracture.
CT head: No acute intracranial abnormality
#Hypovolemic hyponatremia
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
Drop in sodium noted-s/p hypertonic solution - Na 127 today.
Continue to monitor sodium closely.
#NON SMALL CELL. lung CA metastases to liver March 2024 biopsied
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
She underwent her FIRST chemotherapy on 10/30 and 10/31 Carboplatin, Paclitaxel and Amivantamab-vmjw Immunotherapy(over 2 days) she took dexamethasone on 10/29, 10/30, 10/31 and 11/01.
�On CT multiple hepatic lesions, right lower lobe pulmonary nodule, osteoblastic metastases mild T11 compression fracture
-Follows with [facility]
- Plan is for chemo once a week, immunotherapy second week, immunotherapy third week for future
Pancytopenia without neutropenia
Monitor, likely secondary to recent chemo
follow CBC
#Mitral valve prolapse
#Hx of syncope
Will monitor orthostatic vitals
DVT prophylaxis
Subcu heparin
Full code
Discussed with
Anticipated Discharge: Within 24 hours
Subjective/Interval History
-
Date of Service: November 06, 2024
Today with not much of nausea and didnt need anti emetics.
Tolerating clears.
No dizziness.
No fever or chills.
Objective Data
-
Labs:
Laboratory Results
11/06/24
06:38
WBC 1.5 L*
Hgb 10.8 L
Hct 30.6 L
Plt Count 63 L
Sodium 127 L
Potassium 3.6
Chloride 97 L
Carbon Dioxide 29
BUN 10
Creatinine 0.4 L
Glucose 109 H
Calcium 7.3 L
Vital Signs:
Vital Signs
Temp Pulse Resp BP Pulse Ox
98.2 F 84 20 129/80 100
11/06/24 07:53 11/06/24 07:53 11/06/24 07:53 11/06/24 07:53 11/06/24 07:53
I&O
11/05/24 11/06/24 11/07/24
06:59 06:59 06:59
Intake Total 790 / 790 240 / 240
Balance 790 / 790 240 / 240
Physical Exam
-
General: Comfortable
Respiratory: Non Labored Respirations; Negative Accessory Resp Muscle Use
Cardiac: Regular Rhythm and S1/S2
GI: Soft and Nontender
Neuro: AO x 3
Psych: Calm
Data Reviewed
-
Labs: Labs Reviewed by me
[2024-11-06 15:33] VITALS: BP 135/64
[2024-11-06] MEDS: IMODIUM 2 MG PO (21:22)
[2024-11-06] MEDS: ALPRAZOLAM ODT 0.25 MG PO (23:14)
[2024-11-06 23:23] VITALS: BP 113/68; BP 134/70; BP 138/71; PULSE 100; PULSE 83; PULSE 87
[2024-11-07 07:54] LABS: Ionized Calcium 1.03 mMOL/L (1.15-1.33)
[2024-11-07 07:56] VITALS: BP 139/62
[2024-11-07 08:13] LABS: Hematocrit 30.5 % (37.0-47.0); Mean Corp Hgb Conc. 36.1 g/dL (33.0-37.0); Mean Corpuscular Hgb 32.9 pg (27.0-31.0); Mean Corpuscular Volume 91.3 fL (81.0-99.0); Mean Platelet Volume 10.7 fL (7.4-10.4); Platelet Count 57 10^3/uL (130-400); Red Blood Cell Count 3.34 10^6/uL (4.20-5.40); Red Cell Dist. Width 12.9 % (11.5-14.5); White Blood Cell Count 1.7 10^3/uL (4.8-10.8)
[2024-11-07] MEDS: PROTONIX IV 40 MG IV (08:34)
[2024-11-07] MEDS: NSS (PRESERVATIVE FREE) 10 ML IV (08:34)
[2024-11-07] MEDS: HEPARIN 5000 UNITS SC (08:35)
[2024-11-07 08:53] LABS: Blood Urea Nitrogen 11 mg/dl (7-17); Calcium 7.8 mg/dl (8.4-10.2); Carbon Dioxide 26 mmol/L (22-30); Chloride 94 mmol/L (98-107); Estimated Creatinine Clearance 63 ml/min; Glucose 122 mg/dl (70-99); Magnesium 1.9 mg/dl (1.6-2.3); Phosphorus 2.1 mg/dl (2.5-4.5); Potassium 3.6 mmol/L (3.5-5.1); Sodium 126 mmol/L (135-145); eGFR > 60.00
--- NOTE | 2024-11-07 09:48 | W.PN.NEPH.PH ---
Today's Communication / Plan
-
[facility]
Assessment/Plan
-
Assessment
metastatic lung cancer
Hyponatremia
Hypokalemia
Hypocalcemia
Hypertension
Nausea vomiting diarrhea/colitis
Plan
samsca today
IV KPhos
lasix daily
dc planning
-
-
Date of Service: November 07, 2024
CC / HPI / ROS
-
Chief Complaint:
Hyponatremia
History of Present Illness:
serum sodium up to 126 stable
hemodynamically stable
Thrombocytopenia and leukopenia persist
Phos low
Review of Systems:
Urine output not recorded
No fevers
po intake ok
Labs
-
Labs:
WBC 1.7 10^3/uL (4.8-10.8) L* 11/07/24 07:39
RBC 3.34 10^6/uL (4.20-5.40) L 11/07/24 07:39
Hgb 11.0 g/dL (12.0-16.0) L 11/07/24 07:39
Hct 30.5 % (37.0-47.0) L 11/07/24 07:39
Plt Count 57 10^3/uL (130-400) L 11/07/24 07:39
Sodium 126 mmol/L (135-145) L 11/07/24 07:39
Potassium 3.6 mmol/L (3.5-5.1) 11/07/24 07:39
Chloride 94 mmol/L (98-107) L 11/07/24 07:39
Carbon Dioxide 26 mmol/L (22-30) 11/07/24 07:39
BUN 11 mg/dl (7-17) 11/07/24 07:39
Creatinine 0.4 mg/dL (0.6-1.0) L 11/07/24 07:39
eGFR > 60.00 11/07/24 07:39
Glucose 122 mg/dl (70-99) H 11/07/24 07:39
Calcium 7.8 mg/dl (8.4-10.2) L 11/07/24 07:39
Phosphorus 2.1 mg/dl (2.5-4.5) L 11/07/24 07:39
Albumin 3.1 g/dl (3.5-5.0) L 11/05/24 07:51
Physical Exam
-
Vital Signs:
Vital Signs
Temp Pulse Resp BP Pulse Ox
98.0 F 85 20 139/62 99
11/07/24 07:56 11/07/24 07:56 11/07/24 07:56 11/07/24 07:56 11/07/24 07:56
Cardiovascular:: Regular rate and rhythm
Respiratory:: Bilateral: CTA
Lung Excursion:: Normal
Abdomen:: Nontender and Soft
Bowel Sounds:: Normal
Extremity Edema:: None: Bilateral:
--- NOTE | 2024-11-07 09:59 | W.PN.HOSP.TC ---
Today's Communication/Plan
-
DC
Assessment / Plan
Assessment / Plan
Acute colitis possibly noninfectious
-symptomatically troubled with nausea /vomiting/diarrhea which is suspected from chemotherapy/immunotherapy
#Acute Duodenitis
Just completed 2 days of chemo/immunotherapy 10/30, 10/31
Resolved GI symptoms and tolerating diet.
cdiff neg
GI consulted-appt input- signed off
CW Protonix with possible duodenitis
#Hypovolemic hyponatremia
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
Drop in sodium noted-s/p hypertonic solution - Na 126 today.
Discussed with nephrology today-dose of Samsca and okay to go home and monitor sodium as outpatient.
#NON SMALL CELL. lung CA metastases to liver March 2024 biopsied
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
She underwent her FIRST chemotherapy on 10/30 and 10/31 Carboplatin, Paclitaxel and Amivantamab-vmjw Immunotherapy(over 2 days) she took dexamethasone on 10/29, 10/30, 10/31 and 11/01.
�On CT multiple hepatic lesions, right lower lobe pulmonary nodule, osteoblastic metastases mild T11 compression fracture
-Follows with [facility] [place] [facility]
- Plan is for chemo once a week, immunotherapy second week, immunotherapy third week for future
Pancytopenia without neutropenia
Monitor, likely secondary to recent chemo
follow CBC
#Mitral valve prolapse
#Hx of syncope
Will monitor orthostatic vitals
DVT prophylaxis
Subcu heparin
Full code
Medically stable for discharge.
Total time of discharge 32 minutes
Anticipated Discharge: Today
Subjective/Interval History
-
Date of Service: November 07, 2024
Resolved nausea vomiting. Tolerating solid diet without issue. She had loose stools last evening but none today.
Denies fever chills.
Objective Data
-
Labs:
Laboratory Results
11/07/24
07:39
WBC 1.7 L*
Hgb 11.0 L
Hct 30.5 L
Plt Count 57 L
Sodium 126 L
Potassium 3.6
Chloride 94 L
Carbon Dioxide 26
BUN 11
Creatinine 0.4 L
Glucose 122 H
Calcium 7.8 L
Vital Signs:
Vital Signs
Temp Pulse Resp BP Pulse Ox
98.0 F 85 20 139/62 99
11/07/24 07:56 11/07/24 07:56 11/07/24 07:56 11/07/24 07:56 11/07/24 07:56
I&O
11/06/24 11/07/24 11/08/24
06:59 06:59 06:59
Intake Total 720 / 720
Balance 720 / 720
Review of Systems
-
Constitutional: Denies Fever
EENT: Denies Sore Throat
Respiratory: Denies Cough or Trouble Breathing
Cardiac: Denies Chest Pain
Neuro: Denies Dizzy
Physical Exam
-
General: Comfortable
Respiratory: Non Labored Respirations; Negative Accessory Resp Muscle Use
GI: Soft and Nontender
Neuro: AO x 3
Data Reviewed
-
Labs: Labs Reviewed by me
--- NOTE | 2024-11-07 10:08 | W.DCSUMMARY ---
Discharge Summary
Discharge Data
Date of Admission: 11/03/24
Date of Discharge: 11/07/24
-
Pending Results: No
Hospital Course
Primary diagnosis:
Acute colitis possibly noninfectious
Hyponatremia
Non-small cell lung cancer with mets
Pancytopenia suspected secondary to chemotherapy. No neutropenia
Secondary diagnosis:
Mitral valve prolapse
Hospital course:
Patient has non-small cell lung cancer with mets went on first chemotherapy cycle. She follows with [facility]. Post chemo she came in with nausea vomiting diarrhea. She was pancytopenic but not neutropenic. Stool studies were negative.
CT of the abdomen pelvis showed uncomplicated colitis picture hepatic flexure and at the send the reactive duodenitis. GI did not think primary GI process suspected secondary to chemotherapy. She was treated symptomatically with resolution of her
symptoms. She was given Protonix with the questionable duodenitis and I would continue for a month.
She had associated hyponatremia along with hypokalemia and hypocalcemia which is suspected to be volume related but urine studies were more consistent with SIADH with urine Osmo of 68. Probably SIADH picture secondary to advanced malignancy and
constant nausea on presentation. She was initially treated with hypotonic solution.Today's sodium was 126. She received Samsca and Lasix today. Check Repeat BMP in couple of days.
Consultants on board:
GI-Lele Rao
Nephrology-Mac Omer
Discharge Plan
-
Patient Disposition: Home (Routine Discharge)
Discharge Diagnosis/Procedures: Acute GI symptoms nausea vomiting and diarrhea suspected secondary to cancer treatment. Hyponatremia.
Diet: Regular
Activity: As tolerated
Driving Restrictions: As prior to admission
Bathing Restrictions: None
Blood Work: BMP blood work in 1 to 2 days-slip given
Referrals:
Mac Alexandra MD [Active] - in one week (Call him with the result of BMP)
Ovidio Osorio, [Family Provider] - in less than 1 week
Prescriptions:
New
furosemide 20 mg Tablet
10 mg PO DAILY Qty: 15 0RF
pantoprazole [Protonix] 40 mg tablet,delayed release (DR/EC)
40 mg PO DAILY Qty: 30 0RF
Continued
prochlorperazine maleate 10 mg tablet
10 mg PO Q6HPRN PRN (Reason: nausea/vomiting)
alprazolam 0.25 mg tablet
0.25 mg PO HSPRN PRN (Reason: ANXIETY)
dexamethasone 4 mg Tablet
See Rx Instructions .ROUTE .COMPLEX
Rx Instructions:
4 mg po the day before chemo, 4mg po each day of chemo, 4mg po the day after chemo
folic acid 1 mg Tablet
1 mg PO DAILY
loperamide 2 mg capsule
2 mg PO DAILYPRN PRN (Reason: diarrhea)
ondansetron HCl 8 mg tablet
8 mg PO Q8HPRN PRN (Reason: nausea/vomiting)
Discharge Orders:
Discharge Patient (As Directed); Ordered 11/07/24
Ordered By: Lloyd Walters
Discharge Date and Time
Print Language: TUNISIAN
[2024-11-07 10:27] LABS: % Basophils 0.6 % (0-2); % Eosinophils 2.3 % (0-6); % Immature Granulocytes 1.2 % (0-0.5); % Lymphocytes 26.3 % (20.5-51.1); % Monocytes 11.1 % (1.7-9.3); % Neutrophils 58.5 % (42.2-75.2); Absolute Lymphocytes 0.5 10^3/uL (1.2-3.4); Absolute Monocytes 0.2 10^3/uL (0.1-0.6); Nucleated Red Blood Cells % 0 %
--- NOTE | 2024-11-07 11:07 | CM ---
Chart reviewed home today no needs.
Plan; Home today no needs.
[2024-11-07] MEDS: SAMSCA 15 MG PO (11:11)
[2024-11-07] MEDS: POTASSIUM PHOSPHATE 259.0909 MEQ IV (11:11)
[2024-11-07 15:55] VITALS: BP 114/64
== END 2024-11-07 16:05 | disposition home or self-care (01) | DRG 643 ==
LOC: 1 ACUTE 15:29
PROVIDERS: Clinical Nurse Specialist Family Health; Specialist; Student in an Organized Health Care Education/Training Program; ADMITTING PHYSICIAN Internal Medicine; ATTENDING PHYSICIAN Internal Medicine; CONSULT PHYSICIAN Internal Medicine Gastroenterology; CONSULT PHYSICIAN Specialist; EMERGENCY PHYSICIAN Emergency Medicine; FAMILY PHYSICIAN Family Medicine
DX: E22.2 Syndrome of inappropriate secretion of antidiuretic hormone (principal); D61.810 Antineoplastic chemotherapy induced pancytopenia; K52.1 Toxic gastroenteritis and colitis; C34.90 Malignant neoplasm of unspecified part of unspecified bronchus or lung; C78.7 Secondary malignant neoplasm of liver and intrahepatic bile duct; C79.31 Secondary malignant neoplasm of brain; C79.51 Secondary malignant neoplasm of bone; M84.58XA Pathological fracture in neoplastic disease, other specified site, initial encounter for fracture; I10 Essential (primary) hypertension; D70.1 Agranulocytosis secondary to cancer chemotherapy; E86.0 Dehydration; E83.51 Hypocalcemia; E87.6 Hypokalemia; D69.59 Other secondary thrombocytopenia; K29.80 Duodenitis without bleeding; I34.1 Nonrheumatic mitral (valve) prolapse; E86.1 Hypovolemia; T45.1X5A Adverse effect of antineoplastic and immunosuppressive drugs, initial encounter; Y92.9 Unspecified place or not applicable; Z92.21 Personal history of antineoplastic chemotherapy; Z92.3 Personal history of irradiation; Z80.1 Family history of malignant neoplasm of trachea, bronchus and lung
CPT/HCPCS: 70450; 74177; 80048; 80051; 80053; 82330; 83690; 83735; 83930; 83935; 84100; 84295; 84300; 84484; 85025; 87045; 87046; 87324; 87427; 87449; 89055; 93005; 96361; 96374; 97162; 99285; Q9967